=== PATIENT | female | born 1995 | race Caucasian/White ===

== ENCOUNTER → 2020-08-09 09:30 | Outpatient (CLI) | payer OTHER, SELFPAY ==
--- NOTE | ~2020-08-09 | US_ITS ---
US breast RT complete 08/09/2020 09:44 Indication: Palpable right breast lump for one week. Procedure: High-resolution Limited ultrasound of the right breast Comparison: No prior studies for comparison. Findings: Complete right breast ultrasound: At 11:00, 6 cm from the nipple in the area of palpable co ncern there is an oval circumscribed hypoechoic mass measuring 3 x 1.5 x 2.7 cm. There is enhanced th rough transmission and internal vascularity. Parallel orientation. At 9:00, 3 cm from the nipple, the re is a oval circumscribed parallel oriented hypoechoic mass measuring 7 x 4 x 6 mm. No internal vasc ularity. There is posterior acoustic enhancement. Impression: 1: Probable benign right breast masses. BI-RADS CATEGORY 3-PROBABLY BENIGN FINDING RECOMMENDATION: Six-month follow-up right breast ultrasound recommended. Reviewed, dictated and finalized at location A. Impression: 1: Probable benign right breast masses. BI-RADS CATEGORY 3-PROBABLY BENIGN FINDING RECOMMENDATION: Six-month follow-up right breast ultrasound recommended.
== END ==
PROVIDERS: PCP Family Medicine; Visit Provider Physician Assistant
DX: N63.11 Unspecified lump in the right breast, upper outer quadrant (principal)
CPT/HCPCS: 76641